=== PATIENT | female | born 1995 | race Caucasian/White ===

== ENCOUNTER 2018-03-13 12:04 | Emergency (ER) | payer BC ==
[2018-03-13] MEDS ORDERED: ONDANSETRON 4 MG/2 ML VIAL IVP ONE (12:23)
[2018-03-13] MEDS ORDERED: NS 1,000 ML IV ONE (12:23)
[2018-03-13 12:53] LABS: PLATELET COUNT 277 10^3/uL (150-400)
--- NOTE | 2018-03-13 14:59 | EDPHY ---
H & P Stated Complaint: Recurring urinary/kidney infects; can't get into urologist drake Garcia - Personal History LMP (Females 10-55): 1-7 Days Ago Current Tetanus Diphtheria and Acellular Pertussis (TDAP): Yes - Medical/Surgical History Hx Asthma: Yes Hx Chronic Respiratory Disease: No Hx Diabetes: No Hx Cardiac Disease: No Hx Renal Disease: No Hx Cirrhosis: No Hx Alcoholism: No Other PMH: recurrent kidney/bladder infections - Social History Smoking Status: Never smoked Time Seen by Provider: 03/13/18 12:22 HPI/ROS: Chief Complaint: Back pain, malaise, vomiting HPI: Year old female's been treated recently for pyelonephritis, currently sees Nalini Weir at [facility]. She was initially seen here in December with urinalysis consistent with UTI. Urine culture subsequently appeared is his contaminated with skin rick. She states she was diagnosed with a staph infections was completed a course of amoxicillin. Pain got worse is not last day with aching low back pain and right lower abdominal pain. Nausea vomiting. Pain is similar to prior episodes. She has tried called her urologist was not got a call back. No pain or chills. No chest pain or shortness of breath. She has seen Marie THAKKAR for this with no significant results. ROS: 10 systems were reviewed and were negative except those elements noted in the HPI. PMH: A pyelonephritis Social History: No smoking, no alcohol, no recreational drug use Family History: non-contributory Physical Exam: Gen: Awake, Alert, No Distress HEENT: Nose: no rhinorrhea Eyes: PERRLA, EOMI Mouth: Moist mucosa Neck: Supple, no JVD Chest: nontender, lungs clear to auscultation Heart: S1, S2 normal, no murmur Abd: Soft, mild right adnexal pain, no guarding Back: no CVA tenderness, no midline tenderness Ext: no edema, non-tender Skin: no rash Neuro: CN II-XII intact, Sensation grossly intact, Strength 5/5 in bilateral upper and lower extremities (Jero Miller) Constitutional: Initial Vital Signs Temperature (C) 37 C 03/13/18 12:08 Heart Rate 78 03/13/18 12:08 Respiratory Rate 16 03/13/18 12:08 Blood Pressure 132/96 H 03/13/18 12:08 O2 Sat (%) 98 03/13/18 12:08 O2 Delivery Mode Room Air Allergies/Adverse Reactions: ibuprofen Allergy (Intermediate, Verified 03/13/18 12:08) Hives Home Medications: Medication Instructions Recorded Rubens 1-35-28 Tablet 12/16/17 Sertraline HCl 12/16/17 Amoxicillin/Clavulanate Pot 875 mg PO BID #20 tab 03/13/18 [Augmentin 875 MG TAB (RX)] Medical Decision Making - Diagnostics Imaging Results: Imaging Impressions Pelvic/Renal Ultrasound 03/13/18 13:39 Impression: 1. Heterogenous fluid-filled endocervical canal again noted for which direct visualization and possible endometrial biopsy is recommended. Gynecologic consult also recommended. 2. No ovarian torsion or significant free fluid in the pelvis. No adnexal masses. 3. Possible polycystic ovaries. Findings and recommendations discussed with Emergency Department physician, Jero Miller MD, at 1426 hour, 03/13/2018. Final report concurs with initial preliminary interpretation. ED Course/Re-evaluation: 22-year-old with intermittent chronic right back pelvic pain. She has been seen by Urology and OBGYN. She was told that she has staff pyelonephritis and complete a course of antibiotics. Urinalysis here shows 1+ leuk esterase and 5- 10 white cells and otherwise his unimpressive. I had repeated ultrasound shows no acute changes. Last urine culture here was positive for mixed skin rick. Plan will be discussed with Urology with plans for outpatient follow-up. (Jero Miller) Other Provider: 15:00 I assumed care of this patient at shift change pending consult with urology. 15:[address] Falcon, urologist. He recommends treatment with amoxicillin or Augmentin x7 days and outpatient followup. 15:48 Reassessed patient. Discussed consult with urology. Plan to discharge home in good condition with prescription for Augmentin. She will followup with her regular urologist. Return precautions discussed. She is comfortable with this plan. (Gurmeet Landaverde) - Data Points Laboratory Results: Laboratory Results 03/13/18 12:40 03/13/18 12:40 03/13/18 03/13/18 03/13/18 13:15 12:40 12:40 WBC RBC Hgb Hct MCV MCH MCHC RDW Plt Count MPV Neut % (Auto) Lymph % (Auto) Wilcox % (Auto) Eos % (Auto) Baso % (Auto) Nucleat RBC Rel Count Absolute Neuts (auto) Absolute Lymphs (auto) Absolute Monos (auto) Absolute Eos (auto) Absolute Basos (auto) Absolute Nucleated RBC Immature Gran % Immature Gran # Sodium 139 mEq/L mEq/L (135-145) Potassium 3.8 mEq/L mEq/L (3.3-5.0) Chloride 103 mEq/L mEq/L (97-110) Carbon Dioxide 26 mEq/l mEq/l (22-31) Anion Gap 10 mEq/L mEq/L (8-16) BUN 16 mg/dL mg/dL (7-23) Creatinine 0.7 mg/dL mg/dL (0.6-1.0) Estimated GFR > 60 Glucose 90 mg/dL mg/dL (70-100) Calcium 9.4 mg/dL mg/dL (8.5-10.4) Beta HCG, Qual NEGATIVE Urine Color PALE YELLOW Urine Appearance CLEAR Urine pH 6.0 (5.0-7.5) Ur Specific Corning 1.006 (1.002-1.030) Urine Protein NEGATIVE (NEGATIVE) Urine Ketones NEGATIVE (NEGATIVE) Urine Blood NEGATIVE (NEGATIVE) Urine Nitrate NEGATIVE (NEGATIVE) Urine Bilirubin NEGATIVE (NEGATIVE) Urine Urobilinogen NEGATIVE EU EU (0.2-1.0) Ur Leukocyte Esterase 1+ H (NEGATIVE) Urine RBC 1-3 /hpf /hpf (0-3) Urine WBC 5-10 /hpf H /hpf (0-3) Ur Epithelial Cells TRACE /lpf /lpf (NONE-1+) Urine Bacteria 1+ /hpf H /hpf (NONE SEEN) Urine Mucus TRACE /lpf /lpf (NONE-1+) Urine Glucose NEGATIVE (NEGATIVE) 03/13/18 12:40 WBC 6.61 10^3/uL 10^3/uL (3.80-9.50) RBC 5.05 10^6/uL 10^6/uL (4.18-5.33) Hgb 14.6 g/dL g/dL (12.6-16.3) Hct 43.1 % % (38.0-47.0) MCV 85.3 fL fL (81.5-99.8) MCH 28.9 pg pg (27.9-34.1) MCHC 33.9 g/dL g/dL (32.4-36.7) RDW 12.3 % % (11.5-15.2) Plt Count 277 10^3/uL 10^3/uL (150-400) MPV 10.1 fL fL (8.7-11.7) Neut % (Auto) 53.1 % % (39.3-74.2) Lymph % (Auto) 34.0 % % (15.0-45.0) Wilcox % (Auto) 6.5 % % (4.5-13.0) Eos % (Auto) 5.1 % % (0.6-7.6) Baso % (Auto) 1.1 % % (0.3-1.7) Nucleat RBC Rel Count 0.0 % % (0.0-0.2) Absolute Neuts (auto) 3.51 10^3/uL 10^3/uL (1.70-6.50) Absolute Lymphs (auto) 2.25 10^3/uL 10^3/uL (1.00-3.00) Absolute Monos (auto) 0.43 10^3/uL 10^3/uL (0.30-0.80) Absolute Eos (auto) 0.34 10^3/uL 10^3/uL (0.03-0.40) Absolute Basos (auto) 0.07 10^3/uL 10^3/uL (0.02-0.10) Absolute Nucleated RBC 0.00 10^3/uL 10^3/uL (0-0.01) Immature Gran % 0.2 % % (0.0-1.1) Immature Gran # 0.01 10^3/uL 10^3/uL (0.00-0.10) Sodium Potassium Chloride Carbon Dioxide Anion Gap BUN Creatinine Estimated GFR Glucose Calcium Beta HCG, Qual Urine Color Urine Appearance Urine pH Ur Specific Corning Urine Protein Urine Ketones Urine Blood Urine Nitrate Urine Bilirubin Urine Urobilinogen Ur Leukocyte Esterase Urine RBC Urine WBC Ur Epithelial Cells Urine Bacteria Urine Mucus Urine Glucose Medications Given: Discontinued Medications Sodium Chloride (Ns) 1,000 mls @ 0 mls/hr IV ONCE ONE; Wide Open PRN Reason: Protocol Stop: 03/13/18 12:24 Last Admin: 03/13/18 12:37 Dose: 1,000 mls Ondansetron HCl (Zofran) 4 mg IVP EDNOW ONE Stop: 03/13/18 12:24 Last Admin: 03/13/18 12:37 Dose: 4 mg Departure - Departure Disposition: Home, Routine, Self-Care Clinical Impression: Back pain, Pyelonephritis Condition: Good Instructions: Urinary Tract Infection in Women (ED), Kidney Infection (ED) Additional Instructions: Take Augmentin as prescribed. It is important to finish your entire course of antibiotics even if you are feeling better. Follow up with your urologist in one week. Return to the emergency department for high fever, worsening pain, or failure to improve within 72 hours. Referrals: Nalini Weir, KOSTA [Physician [employer] Apprentice] - As per Instructions Prescriptions: Amoxicillin/Clavulanate Pot [Augmentin 875 MG TAB (RX)] 875 mg PO BID #20 tab
[2018-03-13 15:57] VITALS: BP 130/85
== END 2018-03-13 15:57 | disposition home or self-care (01) ==
DX: N12 Tubulo-interstitial nephritis, not specified as acute or chronic (principal); E86.9 Volume depletion, unspecified; M54.9 Dorsalgia, unspecified; Z87.440 Personal history of urinary (tract) infections
CPT/HCPCS: 96374; J2405